=== PATIENT | female | born 1955 | race African-American/Black ===

== ENCOUNTER 2022-05-22 22:03 | Emergency (ER) | payer OTHER ==
[~2022-05-22] VITALS: Ht 170.2 cm; Wt 98.0 kg
[2022-05-23 00:06] VITALS: BP 166/69
[2022-05-23] MEDS ORDERED: HYDROcodone-ACET 5/325MG TAB PO ONE (01:45)
[2022-05-23] MEDS ORDERED: ONDANSETRON ODT 4 MG TAB PO ONE (01:45)
[2022-05-23] MEDS ORDERED: ONDA-144 PO (01:55)
[2022-05-23] MEDS ORDERED: HYDR-4902 PO (01:55)
== END 2022-05-23 02:08 | disposition home or self-care (01) ==
LOC: ER 22:03
DX: S92.532A Displaced fracture of distal phalanx of left lesser toe(s), initial encounter for closed fracture (principal); E11.9 Type 2 diabetes mellitus without complications; E78.5 Hyperlipidemia, unspecified; X58.XXXA Exposure to other specified factors, initial encounter; Y93.89 Activity, other specified; Y92.89 Other specified places as the place of occurrence of the external cause; Y99.8 Other external cause status
CPT/HCPCS: 28515; 73630; 99284; Q0162